=== PATIENT | female | born 1985 | race African-American/Black ===

== ENCOUNTER 2024-02-01 07:46 | Outpatient (CLI) | payer OTHER, SELFPAY ==
--- NOTE | 2024-02-01 08:15 | CRLHL7_ITS ---
For Patients: As a result of the Century Cures Act, medical imaging exams and procedure reports are released immediately into your electronic medical record. You may view this report before your referring provider. If you have questions, please contact your health care provider. Technique: Double-contrast upper GI performed after the uneventful administration of effervescent crystals and thick barium followed by thin barium. Fluoroscopy time 1 minute 4 seconds. Indication: Epigastric pain Comparison: None. Findings: Swallowing mechanism: Normal. Esophageal motility: Normal. Gastroesophageal reflux: Spontaneous reflux noted to the midesophagus. Hernia: Small sliding hiatal hernia. Esophagus, stomach and duodenal bulb mucosa: Normal mucosa. No stricture or mass. Impression: Small sliding hiatal hernia. Remainder unremarkable. Dictated by Venkat Hewitt MD @ 02/01/2024 1:15:54 PM (Electronically Signed)
== END 2024-02-01 07:47 | disposition home or self-care (01) ==
LOC: RAD 07:50
PROVIDERS: PCP Student in an Organized Health Care Education/Training Program; Visit Provider Internal Medicine Gastroenterology
DX: D50.8 Other iron deficiency anemias (principal); K44.9 Diaphragmatic hernia without obstruction or gangrene; R10.13 Epigastric pain
CPT/HCPCS: 74246